=== PATIENT | female | born 1995 | race Caucasian/White ===

== ENCOUNTER → 2017-10-31 | Outpatient (REF) | payer OTHER ==
[2017-10-31 16:44] LABS: BASO # 0.1 10^3/uL (0.0-0.2); BASO % 0.7 % (0.0-1.0); EOS # 0.2 10^3/uL (0.0-0.50); EOS % 2.9 % (0.0-3.0); HEMATOCRIT 38.5 % (36.0-47.0); HEMOGLOBIN 12.6 g/dl (12.0-15.5); IMMATURE GRANULOCYTE % 0.3 % (0-3.0); LYMPH # 2.9 10^3/uL (1.5-6.5); LYMPH % 38.8 % (24.0-44.0); MEAN CORPUSCULAR HEMOGLOBIN 29.2 pg (27.0-33.0); MEAN CORPUSCULAR HGB CONC 32.7 g/dl (32.0-36.5); MEAN CORPUSCULAR VOLUME 89.3 fl (80.0-96.0); MONO # 0.7 10^3/uL (0.0-0.8); MONO % 9.6 % (0.0-5.0); NEUTROPHILS # 3.6 10^3/uL (1.8-7.7); NEUTROPHILS % 47.7 % (36.0-66.0); PLATELET COUNT, AUTOMATED 241 10^3/uL (150-450); RED BLOOD COUNT 4.31 10^6/uL (4.00-5.40); RED CELL DISTRIBUTION WIDTH 13.1 % (11.5-14.5); WHITE BLOOD COUNT 7.6 10^3/uL (4.0-10.0)
[2017-10-31 16:52] LABS: ALBUMIN 3.7 GM/DL (3.2-5.2); ALBUMIN/GLOBULIN RATIO 1.23 (1.00-1.93); ALKALINE PHOSPHATASE 116 U/L (45-117); ALT/SGPT 22 U/L (12-78); ANION GAP 8 MEQ/L (8-16); AST/SGOT 17 U/L (7-37); BILIRUBIN,TOTAL 0.2 MG/DL (0.2-1.0); BLOOD UREA NITROGEN 18 MG/DL (7-18); CALCIUM LEVEL 8.3 MG/DL (8.5-10.1); CARBON DIOXIDE LEVEL 27 MEQ/L (21-32); CHLORIDE LEVEL 110 MEQ/L (98-107); CHOLESTEROL LEVEL 129 MG/DL (<200); CHOLESTEROL RISK RATIO 3.307 (<5); CREATININE FOR GFR 0.78 MG/DL (0.55-1.30); FREE T4 0.82 NG/DL (0.76-1.46); GLOMERULAR FILTRATION RATE > 60.0 (>60); GLUCOSE, FASTING 86 MG/DL (70-100); HDL CHOLESTEROL 39 MG/DL (>40); LDL CHOLESTEROL 39.4 MG/DL (<100); NON-HDL-C 90 MG/DL; POTASSIUM SERUM 4.1 MEQ/L (3.5-5.1); SODIUM LEVEL 145 MEQ/L (136-145); TOTAL PROTEIN 6.7 GM/DL (6.4-8.2); TRIGLYCERIDES LEVEL 253 MG/DL (<150)
== END ==
LOC: M SFHCCAPE 08:34
DX: G43.009 Migraine without aura, not intractable, without status migrainosus (principal)

== ENCOUNTER → 2018-10-16 | Outpatient (CLI) | payer OTHER, SELFPAY ==
[~2018-10-16] MED LIST: BUTACAP78 PO; EFFE37.5 PO; HYDR-3363 PO; TOPI25TA10 PO
== END ==
LOC: M SMT 10:55
PROVIDERS: ATTEND Advanced Practice Midwife
DX: O03.9 Complete or unspecified spontaneous abortion without complication (principal)

== ENCOUNTER → 2019-02-27 | Outpatient (CLI) | payer OTHER | LOC: M SMT 14:47 | PROVIDERS: ATTEND Specialist | DX: Z13.79 Encounter for other screening for genetic and chromosomal anomalies (principal) ==

== ENCOUNTER → 2019-03-10 | Outpatient (CLI) | payer MEDICAID, OTHER ==
--- NOTE | 2019-03-10 19:55 | REP ---
HISTORY: anatomy. COMPARISON: None. Multiple ultrasonographic images of the gravid uterus show a single living intrauterine gestation in the cephalic presentation. Doppler interrogation of the heart shows a heart rate of 152 beats per minute. The placenta is posterior and not low lying. The subjective amniotic fluid volume is within normal limits. The cervix measures 3.9 cm in length and is closed. Evaluation of the maternal adnexal spaces showed no abnormalities. The anatomical structures seen as unremarkable are as follows: Thalami, cavum septum pellucidum, cerebellum, cisterna magna, cerebral ventricles, spine, kidneys, urinary bladder, stomach, cord insertion, three vessel umbilical cord, upper and lower extremities, four chamber heart, ventricular outflow tracts, and upper lip. Only the profile could not be obtained. BPD 5.0 cm = 21 weeks 2 days HC 18.1 cm = 20 weeks 4 days AC 16.6 cm = 21 weeks 4 days FL 3.4 cm = 20 weeks 4 days The estimated weight is 398 grams, which is at the 53rd percentile for a 20 week 6 day gestational age. IMPRESSION: Single living intrauterine gestation as described above with an estimated gestational age of 20 weeks 6 days via composite criteria and an estimated date of delivery of 07/22/2019. No anomalies were detected. Electronically Signed by Michael Fernandes DO 03/11/2019 11:57 A
== END ==
LOC: M RAD 17:40
PROVIDERS: ATTEND Specialist
DX: Z34.82 Encounter for supervision of other normal pregnancy, second trimester (principal); Z3A.20 20 weeks gestation of pregnancy

== ENCOUNTER → 2019-04-03 | Outpatient (CLI) | payer MEDICAID, OTHER ==
--- NOTE | 2019-04-03 18:51 | REP ---
Obstetric sonography: History: Supervision of followup anatomy. Findings: Scanning through the gravid uterus demonstrates a viable single intrauterine gestation in a breech lie. motion is observed and heart rate is recorded at 157 beats per minute. A posterior grade zero placenta is seen without evidence of previa or abruption. Amniotic fluid is subjectively normal. Closed cervical length measured transabdominally is 3.6 cm. No extrauterine abnormalities observed. There has been appropriate interval growth since prior study. The lower extremities are less than optimally seen today but were previously visualized. The following additional anatomic structures are identified today and felt to be sonographically unremarkable: cranium, choroid plexus, cavum, cerebellum posterior fossa, face and profile, lungs, four-chamber heart with left and right ventricular outflow tract views, diaphragm, left-sided stomach, abdominal wall cord insertion, three-vessel cord, kidneys and bladder, spine, upper extremities. Biometry chart: BPD 6.0 cm 24 weeks 3 days head circumference 22.2 cm 24 weeks 2 days abdominal circumference 20.2 cm 24-week 6 days femur length 4.5 cm 24 weeks 5 days humeral length 4.0 cm 24 weeks 3 days HC/AC ratio normal 1.10, cephalic index normal 0.75, estimated weight 729 grams, 1 pound 9 ounces, 63rd percentile for 24 weeks 1 day. Impression: Viable single intrauterine gestation at 24 weeks 4 days by today's composite sonographic criteria. Expected gestational age estimate based on prior sonography is 24 weeks 2 days. HARMEET by prior sonography July 22, 2019. anatomic survey is felt to be complete in conjunction with prior study. Electronically Signed by Eloy Pastor MD 04/03/2019 07:10 P
== END ==
LOC: M RAD 16:26
PROVIDERS: ATTEND Advanced Practice Midwife
DX: Z34.82 Encounter for supervision of other normal pregnancy, second trimester (principal)

== ENCOUNTER 2019-04-22 20:42 | Outpatient (CLI) | payer OTHER ==
[~2019-04-22] VITALS: Ht 170.2 cm; Wt 84.9 kg
--- NOTE | 2019-04-22 22:12 | IPN ---
DATE: 04/22/2019 Amilcar is a 24-year-old 2, para 0-0-1-0, 26-6/7 weeks gestation with an estimated date of confinement (EDC) of 07/23/2019 based on first trimester ultrasound. She presents to labor and delivery today with right lower quadrant discomfort that occurs with activity, walking. She does deny vaginal bleeding, leakage of fluid and contractions. Fetus has been active. care was initiated at [facility] in the first trimester. course complicated by tobacco use during , history of depression. No medications and vitamin D deficiency OBSTETRICAL HISTORY: Spontaneous miscarriage September 2018. OBSTETRIC LABS: O+, antibody screen negative, rubella immune, VDRL nonreactive. Urine culture no growth. Hepatitis B surface antigen negative, HIV negative. Hepatitis C antibody nonreactive. Gonorrhea and chlamydia negative. Quad screen negative. PAST MEDICAL HISTORY: 1. Childhood varicella. 2. Depression. SURGERIES: Cholecystectomy. FAMILY HISTORY: Lung cancer, hypertension. SOCIAL HISTORY: The patient is single; howeverl, the father of the baby is at bedside and supportive. She is a smoker, approximately half a pack a day. She denies alcohol and drug use. Denies history of abuse and denies history of sexually transmitted infections. ALLERGIES: No known drug allergies. CURRENT MEDICATIONS: vitamins OBJECTIVE: Temperature 98.4, pulse 66, respirations 16, blood pressure (BP) 123/59. She is alert and oriented x3. She does not appear in any discomfort. She is smiling and talkative. heart rate is 150, appropriate for gestational age. There is no pattern of contractions. Her abdomen is nontender to palpation. ASSESSMENT: Uterine at 26-6/7 weeks. Normal discomforts of related to ligament pain. PLAN: I did review palliative measures for ligament discomforts. I reviewed signs and symptoms of labor and access to care. The patient has an appointment on April 29 and she is to keep that scheduled appointment. The patient and her partner had all of their questions answered and they are agreeable to discharge to home.
== END 2019-04-22 21:55 | disposition home or self-care (01) ==
LOC: M LDO 20:42
PROVIDERS: ATTEND Advanced Practice Midwife
DX: O26.892 Other specified pregnancy related conditions, second trimester (principal); R10.30 Lower abdominal pain, unspecified; R10.2 Pelvic and perineal pain; O99.333 Smoking (tobacco) complicating pregnancy, third trimester; F17.210 Nicotine dependence, cigarettes, uncomplicated; Z3A.26 26 weeks gestation of pregnancy

== ENCOUNTER → 2019-04-29 | Outpatient (CLI) | payer OTHER ==
[2019-04-29 17:50] LABS: HEMATOCRIT 41.3 % (36.0-47.0); HEMOGLOBIN 13.7 g/dl (12.0-15.5); MEAN CORPUSCULAR HEMOGLOBIN 30.4 pg (27.0-33.0); MEAN CORPUSCULAR HGB CONC 33.2 g/dl (32.0-36.5); MEAN CORPUSCULAR VOLUME 91.8 fl (80.0-96.0); PLATELET COUNT, AUTOMATED 253 10^3/uL (150-450); WHITE BLOOD COUNT 15.8 10^3/uL (4.0-10.0)
== END ==
LOC: M PLALAB 13:41
PROVIDERS: ATTEND Advanced Practice Midwife
DX: Z34.82 Encounter for supervision of other normal pregnancy, second trimester (principal)

== ENCOUNTER → 2019-06-24 | Outpatient (REF) | payer OTHER | LOC: M SFHCWAGY 17:03 | PROVIDERS: ATTEND Advanced Practice Midwife | DX: Z34.03 Encounter for supervision of normal first pregnancy, third trimester (principal) ==

== ENCOUNTER → 2019-06-24 | Outpatient (CLI) | payer OTHER | LOC: M PLALAB 09:44 | PROVIDERS: ATTEND Advanced Practice Midwife | DX: Z34.03 Encounter for supervision of normal first pregnancy, third trimester (principal) ==

== ENCOUNTER 2019-07-02 02:30 | Inpatient (IN) | payer OTHER ==
[2019-07-02] VITALS (28 sets, daily range): BP systolic 109–148; BP diastolic 56–81
[~2019-07-02] VITALS: Ht 170.2 cm; Wt 93.9 kg
[2019-07-02 05:43] LABS: HEMOGLOBIN 12.7 g/dl (12.0-15.5); MEAN CORPUSCULAR HEMOGLOBIN 30.2 pg (27.0-33.0); MEAN CORPUSCULAR HGB CONC 34.3 g/dl (32.0-36.5); MEAN CORPUSCULAR VOLUME 87.9 fl (80.0-96.0); PLATELET COUNT, AUTOMATED 170 10^3/uL (150-450); RED BLOOD COUNT 4.21 10^6/uL (4.00-5.40); WHITE BLOOD COUNT 9.3 10^3/uL (4.0-10.0)
[2019-07-02 06:55] LABS: ALT/SGPT 20 U/L (12-78); BILIRUBIN,TOTAL 0.2 MG/DL (0.2-1.0); CREATININE FOR GFR 0.53 MG/DL (0.55-1.30); GLOMERULAR FILTRATION RATE > 60.0 (>60); LDH LACTATE DEHYDROGENASE 162 U/L (84-246); URIC ACID 6.2 MG/DL (2.6-6.0)
[2019-07-02] MEDS ORDERED: LR 1,000 ML IV SCH (07:36)
[2019-07-02] MEDS ORDERED: OXYTOCIN DRIP 30 UNITS in IV 1 EA IV SCH (07:45)
--- NOTE | 2019-07-02 07:51 | HPE ---
DATE OF ADMISSION: 07/02/2019 Amilcar is a 24-year-old 2, para 0-0-1-0 at 37 weeks gestation with an estimated date of confinement (EDC) of 07/23/2019 based on first trimester ultrasound. She presents to labor and delivery today with report of rupture of membranes at approximately 0000. She reports some scant vaginal bleeding. She reports continued leakage of fluid. She does report that contractions did start as she was driving into the hospital and the fetus has been active. care was initiated at [facility] in the first trimester. course complicated by tobacco use and depression and vitamin D deficiency OBSTETRICAL HISTORY: September 2018 spontaneous miscarriage. OBSTETRIC LABS O+, antibody screen negative, rubella immune, VDRL nonreactive. Urine culture no growth. Hep B surface antigen negative, HIV negative. Hep C antibody nonreactive. Gonorrhea and chlamydia negative. Quad screen negative for aneuploidy. Gestational diabetic screening normal at 67 and her GBS is negative. PAST MEDICAL HISTORY: Childhood varicella, depression. SURGERIES: Cholecystectomy. FAMILY HISTORY: Lung cancer, hypertension. SOCIAL HISTORY: The patient is single however, her partner and father of the baby is at bedside and supportive. She is unemployed. She is a smoker of about half a pack per day. She denies alcohol and drug use. She denies history of sexually transmitted infections and denies history of abuse physical, sexual and emotional. ALLERGIES: No known drug allergies. CURRENT MEDICATIONS: vitamin. OBJECTIVE: Temperature 95, pulse 85, respirations 18, blood pressure upon arrival 133/70. Followup blood pressure 148/65. She is alert and oriented times three. She is in no discomfort. heart rate is 120 with moderate variability, positive accelerations noted. No decelerations noted. Contractions every 6-8 minutes. They do palpate mild. Sterile Speculum Exam: She is grossly ruptured. Clear fluid, positive Nitrazine. Sterile Vaginal Exam: 2-3 cm dilated 50% effaced, -3 station. Her abdomen is gravid, cephalic presentation. Estimated weight 6-1/2 to 7 pounds. ASSESSMENT: Intrauterine at 37 weeks. heart rate is category 1. Premature rupture of membranes in latent labor. PLAN: Admit the patient to labor and delivery. Out of bed ad clay. Saline lock. Routine labs with the addition of a spot urine and a pre-eclamptic profile due to the elevated blood pressure. The patient will likely desire an epidural for labor coping when she is more active. All the patient's questions have been answered. I do anticipate an active labor.
[2019-07-02] MEDS ORDERED: ONDANSETRON 4MG/2ML VIAL (J2405) IV SCH (09:00)
[2019-07-02] MEDS ORDERED: FENTANYL 2MCG/ML ROPIVACAINE 0.2% IN 0.9% NACL 100ML IVBAG As Ordered ONE (09:10)
[2019-07-02] MEDS ORDERED: ONDANSETRON 4MG/2ML VIAL (J2405) As Ordered ONE (09:20)
[2019-07-02] MEDS ORDERED: LACTATED RINGER'S 1000 ML IV PRN (10:45)
[2019-07-02] MEDS ORDERED: REFRIGERATOR IV KEYS XX PRN (10:45)
[2019-07-02] MEDS ORDERED: EPIDURAL/PCA KEYS XX PRN (10:45)
[2019-07-02] MEDS ORDERED: NALOXONE INJ 0.4 MG/1 ML VIAL (J2310) IV PRN (10:45)
[2019-07-02] MEDS ORDERED: EPIDURAL COMMENT XX SCH (10:45)
[2019-07-02] MEDS ORDERED: ePHEDrine SULFATE 25 MG/5 ML(5MG/ML) SYRINGE IV PRN (10:45)
[2019-07-02] MEDS ORDERED: ONDANSETRON 4MG/2ML VIAL (J2405) IV PRN ×2 (10:45→14:15)
[2019-07-02] MEDS ORDERED: FENTANYL/ROPIVACAINE/NACL BAG 100 ML EPIDURAL SCH (10:45)
[2019-07-02] MEDS ORDERED: diphenhydrAMINE INJ 50MG/ML VIAL (J1200) IV PRN (10:45)
[2019-07-02] MEDS ORDERED: OXYTOCIN 30 UNITS IN 0.9% NaCl 500ML IV BAG (J2590) As Ordered ONE (13:22)
[2019-07-02] MEDS ORDERED: ACETAMINOPHEN 500 MG TAB PO PRN (14:15)
[2019-07-02] MEDS ORDERED: IBUPROFEN 600 MG TAB PO PRN (14:15)
[2019-07-02] MEDS ORDERED: METHYLERGONOVINE MALEATE 0.2 MG TAB PO PRN (14:15)
[2019-07-02] MEDS ORDERED: DIBUCAINE 1% OINTMENT 30GM TOP PRN (14:15)
[2019-07-02] MEDS ORDERED: ACETAMINOPHEN TAB 650MG DOSE (2X325MG) PO PRN (14:15)
[2019-07-02] MEDS ORDERED: DOCUSATE SODIUM 100 MG CAP PO PRN (14:15)
[2019-07-02] MEDS ORDERED: RHOGAM 300 MCG (1500 IU) INJ (J2790) IM SCH (15:00)
[2019-07-02] MEDS ORDERED: OXYTOCIN DRIP 30 UNITS in IV 1 EA IV ONE (15:00)
[2019-07-02] MEDS ORDERED: MEASLES,MUMPS,RUBELLA VACCINE INJ (MMR-II) (90707) SC SCH (15:00)
[2019-07-02] MEDS: IBUPROFEN 800 MG TAB PO PRN (20:08)
[2019-07-03 05:08] VITALS: BP 128/84
[2019-07-03] MEDS: PRENATAL VITAMINS CHEWABLE TABLET PO SCH (08:44)
[2019-07-03] MEDS ORDERED: INFLUENZA QUADRIVALENT PF VACCINE 0.5ML SYRINGE (90686) IM ONE ×2 (09:00→11:30)
[2019-07-03] MEDS: IBUPROFEN 800 MG TAB PO PRN (11:13)
--- NOTE | 2019-07-03 13:46 | DN ---
DATE: 07/02/2019 PREDELIVERY DIAGNOSES: 37 weeks, spontaneous rupture of membranes, labor. POSTDELIVERY DIAGNOSIS: Delivered. PROCEDURE: Spontaneous vaginal delivery. EDITOR CONTINUITY AND SCRIPT: Dr. Enrique Howe ANESTHESIA: Epidural. ESTIMATED BLOOD LOSS: 300 mL. FINDINGS: 5 pound 14 ounce, 2660 gram, male with scores of 8 and 9. DELIVERY SUMMARY: After a short second stage of about 15 minutes, the patient had spontaneous delivery of a 5 pound 14 ounce male infant, scores of 8 and 9 under epidural. Nuchal cord times one was reduced manually. Shoulder was delivered with ease. The cried immediately and was handed to the mother. Cord was doubly clamped and cut. The placenta delivered spontaneously and appeared to be intact. The patient received IV Pitocin for delivery of the placenta. There were no vaginal lacerations present. Sponge and instrument counts were correct.
[2019-07-03 17:30] VITALS: BP 101/54
[2019-07-04 06:00] VITALS: BP 109/52
[2019-07-04] MEDS: PRENATAL VITAMINS CHEWABLE TABLET PO SCH (08:06)
[2019-07-04] MEDS ORDERED: INFLUENZA QUADRIVALENT PF VACCINE 0.5ML SYRINGE (90686) IM ONE (09:00)
== END 2019-07-04 13:20 | disposition home or self-care (01) | DRG 560 ==
LOC: M LDO 02:30 → M LDI 04:53 → M OBS 16:13
PROVIDERS: ADMIT Advanced Practice Midwife; ATTEND Specialist
PROC: 10E0XZZ Delivery of Products of Conception, External Approach (ICD-10-PCS; principal; 2019-07-02)
DX: O42.02 Full-term premature rupture of membranes, onset of labor within 24 hours of rupture (principal); F17.210 Nicotine dependence, cigarettes, uncomplicated; Z3A.37 37 weeks gestation of pregnancy; O99.334 Smoking (tobacco) complicating childbirth; O69.2XX0 Labor and delivery complicated by other cord entanglement, with compression, not applicable or unspecified; Z37.0 Single live birth